=== PATIENT | female | born 1980 | race Caucasian/White ===

== ENCOUNTER 2019-03-22 08:30 | Inpatient (IN) | payer OTHER ==
[~2019-03-22] VITALS: Ht 157.5 cm; Wt 95.3 kg
[2019-03-22] MEDS ORDERED: LOSARTAN-HCTZ1 EACH PO (11:22)
[2019-03-29] MEDS ORDERED: COLACE100 MG PO (09:11)
[2019-03-29] MEDS ORDERED: ULTRAM50 MG PO (09:11)
== END 2019-03-29 08:00 | disposition home or self-care (01) | DRG 743 ==
LOC: O/R 03-28 05:46 → SURH 03-28 05:46 → O/R 03-28 07:00 → CIR.AMB 03-28 07:00 → SURH 03-28 07:00 → EDSTATUS 03-28 08:30 → OB/GYN 03-28 11:02 → O/R 03-28 11:02 → CIR.AMB 03-29 08:00 → O/R 03-29 08:00 → OB/GYN 03-29 12:45
PROVIDERS: ADMIT Obstetrics & Gynecology
PROC: 0UT7FZZ Resection of Bilateral Fallopian Tubes, Via Natural or Artificial Opening With Percutaneous Endoscopic Assistance (ICD-10-PCS; 2019-03-28)
PROC: 0UT2FZZ Resection of Bilateral Ovaries, Via Natural or Artificial Opening With Percutaneous Endoscopic Assistance (ICD-10-PCS; 2019-03-28)
PROC: 0USG7ZZ Reposition Vagina, Via Natural or Artificial Opening (ICD-10-PCS; 2019-03-28)
PROC: 0UT9FZZ Resection of Uterus, Via Natural or Artificial Opening With Percutaneous Endoscopic Assistance (ICD-10-PCS; principal; 2019-03-28 07:00)
DX: D25.1 Intramural leiomyoma of uterus (principal); D25.2 Subserosal leiomyoma of uterus; N80.0 Endometriosis of uterus; N73.6 Female pelvic peritoneal adhesions (postinfective); N72 Inflammatory disease of cervix uteri; N83.12 Corpus luteum cyst of left ovary

== ENCOUNTER 2023-10-23 11:22 | Outpatient (CLI) | payer OTHER ==
[~2023-10-23 11:22] MED LIST: COLACE100 MG PO; LOSARTAN-HCTZ1 EACH PO; ULTRAM50 MG PO
== END 2023-10-23 11:24 | disposition home or self-care (01) ==
LOC: SONOGRAMA 11:22
PROVIDERS: ATTEND Pathology Anatomic Pathology & Clinical Pathology
DX: D34 Benign neoplasm of thyroid gland (principal); E04.9 Nontoxic goiter, unspecified